=== PATIENT | male | born 1950 | race Hispanic/Latino ===

== ENCOUNTER 2022-10-04 09:45 | Outpatient (CLI) | payer OTHER ==
[~2022-10-04 09:45] MED LIST: Iopamidol 300 61% 100 ML VIAL FS ONE
== END 2022-10-04 09:46 | disposition home or self-care (01) ==
LOC: CSHCT 09:45
PROVIDERS: ATTEND Physician Assistant Medical
DX: K74.60 Unspecified cirrhosis of liver (principal); K76.82 Hepatic encephalopathy; K76.6 Portal hypertension; I86.8 Varicose veins of other specified sites; Z96.89 Presence of other specified functional implants; N62 Hypertrophy of breast
CPT/HCPCS: 74177; 82565